=== PATIENT | male | born 1990 | race Caucasian/White ===

== ENCOUNTER 2021-11-08 15:48 | Emergency (ER) | payer SELFPAY ==
[~2021-11-08] VITALS: Ht 167.6 cm; Wt 77.3 kg
[~2021-11-08 15:48] MED LIST: BENADRYL25 M2 PO; NORCO 325 MG-51 TAB PO
[2021-11-08 16:16] LABS: HEMOGLOBIN 15.3 g/dl (13.5-18.0); MEAN CELL VOLUME 86 fl (80.0-100.0); MEAN CORPUSCULAR HEMOGLOBIN 30 pg (27-31); MEAN CORPUSCULAR HGB CONC 35 g/dl (33.0-37.0); MEAN PLATELET VOLUME 9.4 fl (7.4-10.4); PLATELET COUNT 224 K/mm3 (130-400); RED BLOOD COUNT 5.12 M/mm3 (4.20-5.60)
[2021-11-08 16:36] LABS: ALANINE AMINOTRANSFERASE 32 U/L (0-55); ALBUMIN 3.4 gm/dL (3.5-5.0); ALKALINE PHOSPHATASE 93 U/L (40-150); ANION GAP 11 mmol/L (7-16); AST,SGOT 27 U/L (5-34); BILIRUBIN,TOTAL 0.5 mg/dL (0.2-1.2); BLOOD UREA NITROGEN 11 mg/dL (9-21); CALCIUM 8.3 mg/dL (8.4-10.2); CARBON DIOXIDE 20 mmol/L (22-29); CHLORIDE 104 mmol/L (98-107); CREATININE, serum 0.84 mg/dL (0.72-1.25); GLUCOSE 212 mg/dL (70-99); POTASSIUM 3.6 mmol/L (3.5-4.5); SODIUM 135 mmol/L (136-145); TOTAL PROTEIN 6.3 gm/dL (6.2-8.1)
[2021-11-08 16:42] LABS: TROPONIN-I < 0.010 ng/mL (0.00-0.033)
[2021-11-08 17:16] LABS: BAND 23 % (0-10); LYMPHOCYTE 9 % (20.0-51.0); METAMYELOCYTE 1 % (0-0); NEUTROPHILS 44 % (42.0-75.2)
[2021-11-08 17:17] LABS: PLATELET ESTIMATE NORMAL (NORMAL)
[2021-11-08 17:20] LABS: TRICYCLIC ANTIDEPRESS URINE NEGATIVE
[2021-11-08 17:54] VITALS: BP 116/78; PULSE 100; TEMP 98.1
== END 2021-11-08 17:54 | disposition home or self-care (01) ==
LOC: COL.ER 15:48
PROVIDERS: Physician Assistant
DX: T40.2X1A Poisoning by other opioids, accidental (unintentional), initial encounter (principal); F17.210 Nicotine dependence, cigarettes, uncomplicated; Z28.310 Unvaccinated for COVID-19
CPT/HCPCS: J7030

== ENCOUNTER 2022-07-27 09:27 | Emergency (ER) | payer SELFPAY ==
[~2022-07-27] VITALS: Ht 167.6 cm; Wt 72.7 kg
[2022-07-27 09:31] VITALS: TEMP 98.7
[2022-07-27 10:15] LABS: BASO % 0.4 % (0.0-2.0); EOS # 0.1 K/mm3 (0.0-0.7); EOS % 0.9 % (0.0-4.0); GRAN # 7.8 K/mm3 (1.4-6.5); GRAN % 74.9 % (42.2-75.2); HEMATOCRIT 43.3 % (42.0-52.0); HEMOGLOBIN 15.5 g/dl (13.5-18.0); LYMPH # 1.7 K/mm3 (1.2-3.4); LYMPH % 16.1 % (20.0-51.0); MEAN CELL VOLUME 82 fl (80.0-100.0); MEAN CORPUSCULAR HEMOGLOBIN 29 pg (27-31); MEAN CORPUSCULAR HGB CONC 36 g/dl (33.0-37.0); MEAN PLATELET VOLUME 8.7 fl (7.4-10.4); MONO # 0.7 K/mm3 (0.1-0.6); MONO % 6.6 % (1.7-9.3); PLATELET COUNT 325 K/mm3 (130-400); RED BLOOD COUNT 5.28 M/mm3 (4.20-5.60); REDCELL DISTRIBUTION WIDTH-CV 12.8 % (11.5-14.5)
[2022-07-27 10:27] LABS: ALANINE AMINOTRANSFERASE 16 U/L (0-55); ALBUMIN 3.5 gm/dL (3.5-5.0); ALKALINE PHOSPHATASE 81 U/L (40-150); ANION GAP 12 mmol/L (7-16); AST,SGOT 9 U/L (5-34); BILIRUBIN,TOTAL 0.3 mg/dL (0.2-1.2); BLOOD UREA NITROGEN 12 mg/dL (9-21); CALCIUM 9.1 mg/dL (8.4-10.2); CARBON DIOXIDE 23 mmol/L (22-29); CHLORIDE 107 mmol/L (98-107); CREATININE, serum 0.82 mg/dL (0.72-1.25); GLUCOSE 146 mg/dL (70-99); POTASSIUM 3.4 mmol/L (3.5-4.5); SODIUM 142 mmol/L (136-145); TOTAL PROTEIN 6.6 gm/dL (6.2-8.1)
[2022-07-27 10:31] LABS: ACETAMINOPHEN < 1.0 ug/mL (10-30); ALCOHOL(ethanol),MEDICAL < 10 mg/dL (0-10); SALICYLATE < 5.0 mg/dL (15.0-30.0)
[2022-07-27 12:50] LABS: COLLECTION METHOD CLEAN CATCH
[2022-07-27 13:12] LABS: URINE APPEARANCE Clear (CLEAR/HAZY); URINE BLOOD Negative (NEGATIVE); URINE COLOR Yellow (YELLOW); URINE GLUCOSE Negative (NEGATIVE); URINE KETONE Negative (NEGATIVE); URINE NITRATE Negative (NEGATIVE); URINE PROTEIN(semi-quant) Negative (NEGATIVE); URINE UROBILINOGEN 0.2 E.U/dL (0.2-1.0)
[2022-07-27 13:19] LABS: MUCOUS Present (NOT PRESENT); SQUAMOUS EPITHELIAL None Seen /hpf (0-10); URINE BACTERIA Rare /hpf (NONE SEEN); URINE RBC None Seen /hpf (0-2)
[2022-07-27 13:21] LABS: TRICYCLIC ANTIDEPRESS URINE NEGATIVE
[2022-07-27 15:25] VITALS: BP 118/67; PULSE 84
== END 2022-07-27 18:33 | disposition other institution (70) ==
LOC: COL.ER 09:27
PROVIDERS: Emergency Medicine
DX: S09.90XA Unspecified injury of head, initial encounter (principal); S01.01XA Laceration without foreign body of scalp, initial encounter; R45.851 Suicidal ideations; F15.129 Other stimulant abuse with intoxication, unspecified; F17.200 Nicotine dependence, unspecified, uncomplicated; Y00.XXXA Assault by blunt object, initial encounter